=== PATIENT | male | born 1980 | race Caucasian/White ===

== ENCOUNTER → 2020-05-13 11:30 | Outpatient (CLI) | payer SELFPAY ==
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
== END ==
PROVIDERS: PCP Physician Assistant; Visit Provider Physician Assistant
DX: M47.892 Other spondylosis, cervical region (principal)
CPT/HCPCS: 72050

== ENCOUNTER → 2020-09-20 03:56 | Outpatient (CLI) | payer OTHER, SELFPAY ==
[2020-09-21 03:34] LABS: SARS-CoV-2 RNA PCR Negative
== END ==
PROVIDERS: PCP Physician Assistant; Visit Provider Physician Assistant
DX: R68.89 Other general symptoms and signs (principal); Z20.822 Contact with and (suspected) exposure to COVID-19
CPT/HCPCS: C9803; U0003; U0005